=== PATIENT | female | born 1980 ===

== ENCOUNTER 2019-03-23 21:01 | Emergency (ER) | payer OTHER ==
[2019-03-23] MEDS ORDERED: METOCLOPRAMIDE HCL INJ/PF 10 MG/2 ML SDV IV ONE (23:42)
--- NOTE | 2019-03-23 23:43 | ER Document Report ---
ED Medical Screen (RME) - General Chief Complaint: Headache Stated Complaint: HEADACHE Time Seen by Provider: 03/23/19 23:38 Primary Care Provider: BRIDGETTE RINCON PA [Primary Care Provider] - Follow up as needed Notes: 39-year-old female with a history of migraines that comes to the emergency department for chief complaint of migraine. States it is consistent with headaches in the past, [employer] was not working, she vomited twice today. Pain is in the front of her head, throbbing. Denies head injury, fever, or that headache was maximal at onset. TRAVEL OUTSIDE OF THE [place] IN LAST 30 DAYS: No - Related Data Allergies/Adverse Reactions: No Known Allergies Allergy (Verified 03/23/19 22:07) Past Medical History - Social History Frequency of alcohol use: None Drug Abuse: None Neurological Medical History: Reports: Hx Migraine Renal/ Medical History: Denies: Hx Peritoneal Dialysis Past Surgical History: Reports: Hx Appendectomy - 2010, Hx Section Physical Exam - Vital signs Vitals: Temp Pulse Resp BP Pulse Ox 98.7 F 81 22 H 113/77 98 03/23/19 21:18 03/23/19 21:18 03/23/19 21:18 03/23/19 21:18 03/23/19 21:18 - Neurological Cognition: Normal Orientation: AAOx4 Kemp Coma Scale Verbal: Oriented Kemp Coma Scale Motor: Obeys Commands Speech: Normal Cranial nerves: Normal Cerebellar coordination: Normal Motor strength normal: LUE, RUE, LLE, RLE 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 I have greeted and performed a rapid initial assessment of this patient. A comprehensive ED assessment and evaluation of the patient, analysis of test results and completion of the medical decision making process will be conducted by additional ED providers. - Vital Signs Vital signs: Temp Pulse Resp BP Pulse Ox 98.7 F 81 22 H 113/77 98 03/23/19 21:18 03/23/19 21:18 03/23/19 21:18 03/23/19 21:18 03/23/19 21:18 Doctor's Discharge - Discharge Referrals: BRIDGETTE RINCON PA [Primary Care Provider] - Follow up as needed
[2019-03-24 01:22] VITALS: BP 109/50
[2019-03-24] MEDS ORDERED: DEXAMETHASONE SOD PHOS INJ 10 MG/1 ML VIAL IV ONE (01:50)
--- NOTE | 2019-03-24 01:50 | ER Document Report ---
ED Headache - General Chief Complaint: Headache Stated Complaint: HEADACHE Time Seen by Provider: 03/23/19 23:38 Primary Care Provider: BRIDGETTE RINCON PA [Primary Care Provider] - Follow up as needed Notes: Patient is a 39-year-old female with a history of migraines that comes to the emergency department for chief complaint of migraine. States it is consistent with headaches in the past, F[employer] was not working, she vomited twice today. Pain is in the front of her head, throbbing. Denies head injury, fever, or that headache was maximal at onset. TRAVEL OUTSIDE OF THE [place] IN LAST 30 DAYS: No - Related Data Allergies/Adverse Reactions: No Known Allergies Allergy (Verified 03/23/19 22:07) Past Medical History - General Information source: Patient - Social History Smoking Status: Current Every Day Smoker Frequency of alcohol use: None Drug Abuse: None Lives with: Family Family History: Reviewed & Not Pertinent Patient has suicidal ideation: No Patient has homicidal ideation: No Neurological Medical History: Reports: Hx Migraine Renal/ Medical History: Denies: Hx Peritoneal Dialysis Past Surgical History: Reports: Hx Appendectomy - 2010, Hx Section Review of Systems - Review of Systems Constitutional: No symptoms reported EENT: No symptoms reported Cardiovascular: No symptoms reported Respiratory: No symptoms reported Gastrointestinal: See HPI Genitourinary: No symptoms reported Female Genitourinary: No symptoms reported Musculoskeletal: No symptoms reported Skin: No symptoms reported Hematologic/Lymphatic: No symptoms reported Neurological/Psychological: See HPI Physical Exam - Vital signs Vitals: Temp Pulse Resp BP Pulse Ox 98.7 F 81 22 H 113/77 98 03/23/19 21:18 03/23/19 21:18 03/23/19 21:18 03/23/19 21:18 03/23/19 21:18 - Notes Notes: GENERAL: Alert, interacts well. No acute distress. Smiling and well-appearing. HEAD: Normocephalic, atraumatic. EYES: Pupils equal, round, and reactive to light. Extraocular movements intact. ENT: Oral mucosa moist, tongue midline. Oropharynx unremarkable. Airway patent. Nares patent, no nasal septal hematoma, TM's intact. NECK: Full range of motion. Supple. Trachea midline. LUNGS: Clear to auscultation bilaterally, no wheezes, rales, or rhonchi. No respiratory distress. HEART: Regular rate and rhythm. No murmur ABDOMEN: Soft, non-tender. Non-distended. Bowel sounds present in all 4 quadrants. GENITOURINARY: Deferred EXTREMITIES: Moves all 4 extremities spontaneously. No edema, normal radial and dorsalis pedis pulses bilaterally. No cyanosis. BACK: no cervical, thoracic, lumbar midline tenderness. No saddle anesthesia, normal distal neurovascular exam. Moves all extremities in full range of motion. NEUROLOGICAL: Alert and oriented x3. Normal speech. Cranial nerves II through XII grossly intact. PSYCH: Normal affect, normal mood. SKIN: Warm, dry, normal turgor. No rashes or lesions noted. Course - Re-evaluation Re-evalutation: I saw the patient in triage. I reevaluated her after she received IV Reglan, patient is awake, smiling, she states her headache is completely resolved. She is very well-appearing now especially by comparison. Neck examination unremarkable, no head injury, no fever, very low suspicion of any acute emergent pathology based on her excellent recovery and benign evaluation now. Discussed options, she was treated with dexamethasone because of history of tension headaches, discussed primary care follow-up and return precautions. Patient states satisfaction and agreement. Stable at time of discharge. - Vital Signs Vital signs: Temp Pulse Resp BP Pulse Ox 97.9 F 54 L 17 109/50 L 99 03/24/19 01:20 03/24/19 01:20 03/24/19 01:20 03/24/19 01:20 03/24/19 01:20 Discharge - Discharge Clinical Impression: Headache Qualifiers: Headache type: unspecified Headache chronicity pattern: acute headache Intractability: not intractable Qualified Code(s): R51 - Headache Condition: Stable Disposition: HOME, SELF-CARE Additional Instructions: Your evaluation, symptoms, and resolution with treatment are very suggestive of a tension headache triggering a migraine. You can take the prescribed medication if needed for headaches in the future. Follow-up with primary care for additional evaluation and management of migraines. Return if you worsen including returned or severe headache, vomiting, fever, or any other concerning or worsening symptoms. Referrals: BRIDGETTE RINCON PA [Primary Care Provider] - Follow up as needed
== END 2019-03-24 02:07 | disposition home or self-care (01) ==
LOC: ER 21:01
DX: R51 Headache (principal); F17.200 Nicotine dependence, unspecified, uncomplicated
CPT/HCPCS: 99283; 96374; 96375; J2765; J1100

== ENCOUNTER 2020-07-18 19:54 | Emergency (ER) | payer OTHER ==
--- NOTE | 2020-07-18 20:30 | ER Document Report ---
ED Medical Screen (RME) - General Chief Complaint: Leg Pain Stated Complaint: POSSIBLE LEG PAIN Time Seen by Provider: 07/18/20 20:23 Primary Care Provider: BRIDGETTE LIND PA-C [Primary Care Provider] - Follow up as needed Mode of Arrival: Ambulatory Information source: Patient Notes: 40-year-old female presented to ED for stinging pain to the left thigh. She s tates a week and a half ago she injured her leg while doing squats. She states she took Naprosyn used ice and heat and was better in about 2 days. She states for the last 3 to 4 days she has had a stinging pain to the front and medial thigh. She states she went to the urgent care and they told her she needed to get a venous Doppler. They told her they could not rule out deep vein thrombosis without a venous Doppler. Patient is alert oriented respirations regular nonlabored speaking in full sentences. I have greeted and performed a rapid initial assessment of this patient. A comprehensive ED assessment and evaluation of the patient, analysis of test results and completion of medical decision making process will be conducted by an additional ED providers. TRAVEL OUTSIDE OF THE [place] IN LAST 30 DAYS: No - Related Data Allergies/Adverse Reactions: No Known Allergies Allergy (Verified 03/23/19 22:07) Past Medical History Neurological Medical History: Reports: Hx Migraine Renal/ Medical History: Denies: Hx Peritoneal Dialysis Past Surgical History: Reports: Hx Appendectomy - 2010, Hx Section Physical Exam - Vital signs Vitals: Temp Pulse Resp BP Pulse Ox 98.1 F 66 20 108/60 99 07/18/20 20:03 07/18/20 20:03 07/18/20 20:03 07/18/20 20:03 07/18/20 20:03 Course - Vital Signs Vital signs: Temp Pulse Resp BP Pulse Ox 98.1 F 66 20 108/60 99 07/18/20 20:03 07/18/20 20:03 07/18/20 20:03 07/18/20 20:03 07/18/20 20:03 Doctor's Discharge - Discharge Referrals: BRIDGETTE LIND PA-C [Primary Care Provider] - Follow up as needed
--- NOTE | 2020-07-18 23:38 | RADIOLOGY REPORT (SQ) ---
EXAM DESCRIPTION: Left lower extremity venous duplex 07/18/2020 10:36 PM CDT CLINICAL HISTORY: 40 years, 40 years, Left thigh pain COMPARISON: None TECHNIQUE: Utilizing a linear array transducer, real-time ultrasound evaluation of the left lower extremity was performed. Color Doppler imaging was used to assess vascular flow. FINDINGS: The left common femoral and proximal/mid/distal superficial femoral veins are normal in caliber and compressibility. There is normal directional flow. The left popliteal vein is normal in appearance. There is normal directional flow and normal compressibility. IMPRESSION: No evidence of left lower extremity deep venous thrombosis.
--- NOTE | 2020-07-19 00:29 | ER Document Report ---
ED Extremity Problem, Lower - General Chief Complaint: Leg Pain Stated Complaint: POSSIBLE LEG PAIN Time Seen by Provider: 07/18/20 20:23 Primary Care Provider: BRIDGETTE LIND PA-C [Primary Care Provider] - Follow up as needed Mode of Arrival: Ambulatory Notes: CHIEF COMPLAINT: Left thigh injury HPI: 40-year-old female presenting to the emergency department for evaluation of left thigh injury that occurred 4 5 days ago. Was doing squats felt something pull in the leg had pain for 2 days, took naproxen, pain improved but yesterday noticed slight bruising over the anterior and medial thigh with some stinging and discomfort today when walking. Denies numbness or tingling in the toes denies other injuries or complaints ROS: See HPI - all other systems were reviewed and are otherwise negative Constitutional: no fever Integumentary: Positive bruise Allergy: no hives Musculoskeletal: + extremity pain or swelling Neurological: no numbness/tingling, no weakness MEDICATIONS: I agree with the patient medications as charted by the RN. ALLERGIES: I agree with the allergies as charted by the RN. PAST MEDICAL HISTORY/PAST SURGICAL HISTORY: Reviewed and agree as charted by RN. SOCIAL HISTORY: Reviewed and agree as charted by RN. FAMILY HISTORY: No significant familial comorbid conditions directly related to patient complaint EXAM: Reviewed vital signs as charted by RN. CONSTITUTIONAL: Alert and oriented and responds appropriately to questions. Well-appearing; well-nourished HEAD: Normocephalic; atraumatic EYES: Conjunctivae clear, sclerae non-icteric ENT: normal nose; no rhinorrhea; moist mucous membranes NECK: Supple without meningismus CARD: symmetric distal pulses RESP: Normal chest excursion without splinting or tachypnea ABD/GI: non-distended BACK: The back appears normal EXT: Normal ROM in all joints; no cyanosis, no effusions, no edema. There is no tenderness on palpation over the anterior medial aspect of the left thigh. 3 very small superficial bruises are noted over the anterior thigh SKIN: Normal color for age and race; warm; dry; good turgor NEURO: Moves all extremities equally; Motor and sensory function intact PSYCH: The patient's mood and manner are appropriate. Grooming and personal hygiene are appropriate. MDM: 40-year-old female injury to the left thigh within the last week, slight staining and bruising medially today went to urgent care they recommended she come for an ultrasound which was negative. No evidence of DVT on Doppler study. Will discharge home on anti-inflammatory follow-up orthopedics TRAVEL OUTSIDE OF THE [place] IN LAST 30 DAYS: No - Related Data Allergies/Adverse Reactions: No Known Allergies Allergy (Verified 03/23/19 22:07) Past Medical History - General Information source: Patient - Social History Smoking Status: Unknown if Ever Smoked Family History: Reviewed & Not Pertinent Neurological Medical History: Reports: Hx Migraine Renal/ Medical History: Denies: Hx Peritoneal Dialysis Past Surgical History: Reports: Hx Appendectomy - 2010, Hx Section Physical Exam - Vital signs Vitals: Temp Pulse Resp BP Pulse Ox 98.1 F 66 20 108/60 99 07/18/20 20:03 07/18/20 20:03 07/18/20 20:03 07/18/20 20:03 07/18/20 20:03 Course - Vital Signs Vital signs: Temp Pulse Resp BP Pulse Ox 98.1 F 66 20 108/60 99 07/18/20 20:03 07/18/20 20:03 07/18/20 20:03 07/18/20 20:03 07/18/20 20:03 Discharge - Discharge Clinical Impression: Injury of left thigh Qualifiers: Encounter type: initial encounter Qualified Code(s): S79.922A - Unspecified injury of left thigh, initial encounter Condition: Stable Disposition: HOME, SELF-CARE Additional Instructions: Doppler study tonight was negative for blood clot in the leg. Continue cool compresses to the anterior thigh to help with the bruising. Take Voltaren for pain. Follow-up with orthopedics for further evaluation and treatment call for appointment Prescriptions: Diclofenac Sodium [Voltaren 50 Mg Tablet.] 50 mg PO BID #20 tablet. Referrals: BRIDGETTE LIND PA-C [Primary Care Provider] - Follow up as needed MERVIN GLODEN JR, DO [ACTIVE PROVISIONAL STAFF] - Follow up as needed
[2020-07-19 00:48] VITALS: BP 123/40
== END 2020-07-19 00:35 | disposition home or self-care (01) ==
LOC: ER 19:54
DX: S70.12XA Contusion of left thigh, initial encounter (principal); M79.652 Pain in left thigh; X58.XXXA Exposure to other specified factors, initial encounter
CPT/HCPCS: 93971; 99284

== ENCOUNTER → 2020-10-08 | Outpatient (CLI) | payer OTHER ==
--- NOTE | 2020-10-08 10:26 | WOMENS IMAGING REPORT ---
EXAM DESCRIPTION: BILAT SCREENING MAMMO W/CAD IMAGES COMPLETED DATE/TIME: 10/08/2020 8:24 am REASON FOR STUDY: Z12.31 ENCNTR SCREEN MAMMOGRAM FOR MALIGNANT NEOPLASM OF BREAST Z12.31 ENCNTR SCR EEN MAMMOGRAM FOR MALIGNANT NEOPLASM OF [place] COMPARISON: None. EXAM PARAMETERS: Standard craniocaudal and mediolateral oblique views of each breast recorded using digital acquisition. Read with the assistance of CAD. .[facility] - [employer] Manager Fiber Version 9.2 LIMITATIONS: None. FINDINGS: No suspicious masses, suspicious calcifications or architectural distortion. No areas of c oncern. IMPRESSION: NEGATIVE MAMMOGRAM. BIRADS 1 BREAST DENSITY: c. The breasts are heterogeneously dense, which may obscure small masses. BIRAD: ASSESSMENT: 1 NEGATIVE RECOMMENDATION: ROUTINE SCREENING COMMENT: The patient has been notified of the results by letter per MQSA requirements. Additional no tification policies are in place for contacting patient with suspicious or incomplete findings. Quality ID #[id number]: The [employer] recommends an annual screening mammogram for women aged 40 years or over. This facility utilizes a reminder system to ensure that all patients receive reminder letters, and/or direct phone calls for appointments. This includes reminders for routine scr eening mammograms, diagnostic mammograms, or other Breast Imaging Interventions when appropriate. Th is patient will be placed in the appropriate reminder system. TECHNICAL DOCUMENTATION: FINDING NUMBER: (1) ASSESSMENT: (1) JOB ID: [id number] 2010 [employer]- All Rights Reserved Reading location - IP/workstation name: [email or web address]
== END ==
LOC: WI 08:05
PROVIDERS: ATTEND Physician Assistant
DX: Z12.31 Encounter for screening mammogram for malignant neoplasm of breast (principal)
CPT/HCPCS: 77067